=== PATIENT | female | born 1945 | race Caucasian/White ===

== ENCOUNTER 2025-06-07 07:58 | Emergency (ER) | payer MEDICARE, SELFPAY ==
[2025-06-07 08:04] VITALS: BP 162/91
--- NOTE | 2025-06-07 08:31 | ED.GENMED ---
History of Present Illness
General
Chief Complaint: Change in Mental Status
Source: patient, records and [facility] records
Exam Limitations: altered mental status and dementia
Time Seen by Provider: 06/07/25 08:03
Nursing documentation reviewed up to this point in time: agreed with
History of Present Illness
History of Present Illness:
80-year-old female from local [facility] facility presents for evaluation of falls, details are unclear she denies hitting her head she knows she is at [facility] but not sure of the year moving all extremities no overt signs of head or neck trauma no
pain with range of motion of her hips staff concerns could have a UTI does not appear to be on any blood thinners
Past History
Past History
ED Past Medical History: Psychiatric
Social History
Tobacco: Non-smoker
Alcohol: None
Drug: None
Living: [facility]
Employment: Not employed
Family History
Family History: Unable to obtain (Dementia)
Review of Systems
Review of Systems
Unable to obtain full review of systems at this time due to: dementia
Other source history: transfer record
All Other Systems: Not applicable
Phy Exam
Physical Exam
Physical Exam:
Physical Exam
General: no apparent distress, not acutely ill
Neck: No tongue bite no overt signs of head or neck trauma
Heart: s1/s2 regular rate and rhythm, no murmur. equal radial pulses.
Lungs: no acute respiratory distress. clear bilaterally
Abdomen: Nontender
Neuro: Oriented to person and place unsure of the year moves all EXTR
Skin: no rash
Psychiatric: Cooperative flat affect
Extremities: No pain with range of motion of the hip
Course
Orders/Labs/Results
Orders:
Orders
06/07/25 08:03
EKG [Electrocardiogram (*1)] Urgent
Reason for Study: Chest Pain
EKG- Treatment ONCE
06/07/25 08:21
Straight cath- Treatment ONCE
06/07/25 08:22
CT Head W/o Iv Contrast Urgent
Comment:
Reason For Exam: multi falls
06/07/25 08:36
Complete Blood Count/With Diff Urgent
Comprehensive Metabolic Panel Urgent
06/07/25 09:28
Straight cath- Treatment ONCE
06/07/25 10:08
Urinalysis Reflex To Culture Urgent
Date Specimen was Collected: 06/07/25
Time Specimen was Collected: 09:38
Abnormal Lab Results
06/07/25
08:36
MPV 11.4 H fL
(7.4-10.4)
Absolute Lymphs (auto) 0.9 L 10^3/uL
(1.2-3.4)
Lymphocytes % 16.7 L %
(20.5-51.1)
Monocytes % 12.1 H %
(1.7-9.3)
Chloride 108 H mmol/L
(98-107)
06/07/25 08:36
06/07/25 08:36
Vital Signs
Initial and Last Documented VS:
Initial Vital Signs
Temp Pulse Resp BP Pulse Ox
98.0 F 73 16 162/91 98
06/07/25 08:04 06/07/25 08:04 06/07/25 08:04 06/07/25 08:04 06/07/25 08:04
Last Documented Vital Signs
Temp Pulse Resp BP Pulse Ox
98.0 F 73 16 162/91 98
06/07/25 08:04 06/07/25 08:04 06/07/25 08:04 06/07/25 08:04 06/07/25 08:33
MDM/Problems Addressed
Differential Diagnosis Includes:
Slip and fall arrhythmia electrolyte abnormality UTI occult trauma
MDM/Problems Addressed:
Falls
Chronic conditions affecting care:
Dementia neurocognitive issues
Chronic conditions affecting care: Neurological disorder
Acute Exacerbation and/or Progression of Chronic Illness: Neurological disorder
*Radiology
Radiology exam reviewed: radiology read reviewed
*Pulse Oximetry
SaO2: 98
Oxygen Mode of Delivery: Room air
Patient hypoxic: no
*EKG
Interpreted by ED Provider?: Yes
Interpretation: normal
Comparison EKG: no comparison EKG present
Heart Rate: 78
Rate: normal
Rhythm: sinus
Ischemia: non-specific ST changes
*Horse Stud Worker Interpretation
Rate: normal
Interpretation: normal
Heart Rate: 78
Rhythm: sinus
*Critical Care Note
Total Time (30-74mins, 75-104mins- exclusive of procedures): Not Applicable
Update Note
Update Note:
10:30 AM
Update labs noted CT noted EKG noted urine noted patient remained hemodynamically stable here
ED Attending Note
-
Portions of this chart may have been created with voice recognition software.� Occasional wrong word or��sound alike� substitutions may have occurred due to the inherent limitations of voice recognition software.
Discharge Plan
Departure
Patient Disposition: Group Home/SNF
Date of Disposition: 06/07/25
Time of Disposition: 10:30
Patient with high blood pressure during this ER visit?: No
Condition: Good
Discharge Problem:
Fall
Instructions: Preventing falls - ED discharge instructions, Dementia (DC)
Prescriptions:
No Action
atenolol 25 mg Tablet
25 mg PO BID
omeprazole 20 mg Capsule,Delayed Release(Dr/Ec)
20 mg PO DAILY
albuterol sulfate [ProAir HFA] 90 mcg/actuation Hfa Aerosol Inhaler
2 puff INHALATION R Q6HPRN PRN (Reason: SOB)
fluticasone propionate [Flonase] 50 mcg/actuation [place],Suspension
1 spray INTRANASAL BIDPRN PRN (Reason: ALLERGIES)
fludrocortisone 0.1 mg Tablet
0.1 mg PO DAILY
rosuvastatin [Crestor] 10 mg Tablet
10 mg PO DAILY
bupropion HCl 150 mg Tablet Extended Release 24 Hr
150 mg PO DAILY
Referrals:
Ilan Luong CRNP [Family Provider, General] - Follow up in 5-7 days
Discharge Date and Time
Print Language: GEORGIAN
[2025-06-07 08:48] LABS: Hematocrit 40.4 % (37.0-47.0); Hemoglobin 13.4 g/dL (12.0-16.0); Mean Corp Hgb Conc. 33.2 g/dL (33.0-37.0); Mean Corpuscular Volume 88.6 fL (81.0-99.0); Nucleated Red Blood Cells % 0 %; Platelet Count 257 10^3/uL (130-400); Red Cell Dist. Width 13.2 % (11.5-14.5)
[2025-06-07 09:01] LABS: ALT (SGPT) < 10 U/L (0-35); AST (SGOT) 18 U/L (14-36); Albumin 4.0 g/dl (3.5-5.0); Alkaline Phosphatase 53 U/L (38-126); Blood Urea Nitrogen 10 mg/dl (7-17); Calcium 8.6 mg/dl (8.4-10.2); Carbon Dioxide 26 mmol/L (22-30); Chloride 108 mmol/L (98-107); Estimated Creatinine Clearance 56 ml/min; Glucose 93 mg/dl (70-99); Potassium 3.9 mmol/L (3.5-5.1); Sodium 141 mmol/L (135-145); Total Protein 7.1 g/dl (6.3-8.2); eGFR > 60.00
[2025-06-07 10:16] LABS: Urine Character Clear (Clear)
== END 2025-06-07 12:30 ==
LOC: EMR 07:58
PROVIDERS: Emergency Medicine; EMERGENCY PHYSICIAN Emergency Medicine; FAMILY PHYSICIAN Nurse Practitioner Family
DX: Z04.3 Encounter for examination and observation following other accident (principal); R29.6 Repeated falls; F03.90 Unspecified dementia, unspecified severity, without behavioral disturbance, psychotic disturbance, mood disturbance, and anxiety; W19.XXXA Unspecified fall, initial encounter
CPT/HCPCS: 99285; 70450; 80053; 81003; 85025; 93005

== ENCOUNTER 2025-06-10 12:53 | Emergency (ER) | payer MEDICARE, SELFPAY ==
[2025-06-10] VITALS (22 sets, daily range): BP systolic 94–183; BP diastolic 57–147
[2025-06-10 14:18] LABS: Hematocrit 43.2 % (37.0-47.0); Hemoglobin 13.8 g/dL (12.0-16.0); Mean Corp Hgb Conc. 31.9 g/dL (33.0-37.0); Mean Corpuscular Volume 90.6 fL (81.0-99.0); Platelet Count 280 10^3/uL (130-400); Red Cell Dist. Width 13.3 % (11.5-14.5)
[2025-06-10 14:34] LABS: ALT (SGPT) < 10 U/L (0-35); AST (SGOT) 18 U/L (14-36); Albumin 4.2 g/dl (3.5-5.0); Alkaline Phosphatase 50 U/L (38-126); Blood Urea Nitrogen 15 mg/dl (7-17); Calcium 9.2 mg/dl (8.4-10.2); Carbon Dioxide 28 mmol/L (22-30); Chloride 105 mmol/L (98-107); Estimated Creatinine Clearance 48 ml/min; Glucose 99 mg/dl (70-99); Potassium 4.4 mmol/L (3.5-5.1); Sodium 138 mmol/L (135-145); Total Protein 7.5 g/dl (6.3-8.2); eGFR > 60.00
[2025-06-10] MEDS: MORPHINE SULFATE 2 MG IV ×2 (14:48→17:10)
--- NOTE | 2025-06-10 16:36 | ED.GENMED ---
History of Present Illness
<Robles Mcgee PA-C - Last Filed: 06/10/25 19:11>
General
Chief Complaint: Fall
Time Seen by Provider: 06/10/25 13:21
History of Present Illness
History of Present Illness:
80-year-old female with history of hypertension hyperlipidemia as well as cognitive impairment presents to the emergency department after a fall. Fall was not witnessed by staff but the patient informs me that she tripped and fell onto her left
side and did not strike her head. She is complaining of left-sided chest wall pain. She is not on anticoagulants. Denies any head or neck pain at this time
Past History
<Robles Mcgee PA-C - Last Filed: 06/10/25 19:11>
Past History
ED Past Medical History: Psychiatric
Social History
Tobacco: Non-smoker
Alcohol: None
Drug: None
Living: long term
Employment: Not employed
Family History
Family History: Unable to obtain (Dementia)
Review of Systems
<Robles Mcgee PA-C - Last Filed: 06/10/25 19:11>
Review of Systems
Allergies reviewed?: Yes
All Other Systems: ROS reviewed and negative except as documented in HPI and ROS
Phy Exam
<Robles Mcgee PA-C - Last Filed: 06/10/25 19:11>
Physical Exam
Physical Exam:
GEN: Well appearing, NAD, WDWN
Eyes: PERRLA, EOMs intact, no scleral icterus
HENT: NCAT, oral mucosa moist, no midline cervical spine tenderness
Lungs: CTAB, no wheezes, rales, rhonchi, normal chest wall excursion
Chest: Ecchymosis to the left posterior chest wall with no deformities or flail segment
Cardiac: RRR, no M/R/G, no peripheral edema. Radial pulses 2+ bilat
Abdomen: S, NT, ND, NABS, no masses or hepatosplenomegaly
Neuro: AO x 3, moves all extremities freely
MSK: No gross deformity or ecchymosis. Pelvis stable with no crepitus, no midline cervical, thoracic, or lumbar spinal tenderness. Right hand pain reported by patient, exam unremarkable with no ecchymosis or deformity
Skin: No rashes, petechiae. Normal color, no pallor or jaundice.
Psych: Calm, cooperative, proper hygiene
Course
<Robles Mcgee PA-C - Last Filed: 06/10/25 19:11>
Orders/Labs/Results
Orders:
Orders
06/10/25 13:30
CT Chest/abd/pel W Iv Cont Urgent
Comment:
Reason For Exam: fall, trauma, LUQ/chest wall pain
06/10/25 13:56
Complete Blood Count/No Diff Urgent
Comprehensive Metabolic Panel Urgent
06/10/25 14:33
Morphine Sulfate 2 mg IV NOW STA
06/10/25 17:09
Morphine Sulfate 2 mg .ROUTE .STK-MED ONE
Morphine Sulfate 2 mg IV NOW STA
06/10/25 17:20
CT Cervical Spine W/o Iv Contr Urgent
Comment:
Reason For Exam: trauma
CT Head W/o Iv Contrast Urgent
Comment:
Reason For Exam: trauma
06/10/25 17:42
Ondansetron Injectable [Zofran] 4 mg .ROUTE .STK-MED ONE
06/10/25 17:45
Ondansetron Injectable [Zofran] 4 mg IV NOW STA
06/10/25 17:46
Chest X-ray Portable [CR Chest Portable - 1 View] Urgent
Comment:
Reason For Exam: chest tube
Reason Study Needs to be Portable: Patient Unstable
Abnormal Lab Results
06/10/25
13:56
MCHC 31.9 L g/dL
(33.0-37.0)
MPV 10.7 H fL
(7.4-10.4)
06/10/25 13:56
06/10/25 13:56
Vital Signs
Initial and Last Documented VS:
Initial Vital Signs
Temp Pulse Resp BP Pulse Ox
97.6 F 72 20 128/57 100
06/10/25 13:00 06/10/25 13:00 06/10/25 13:00 06/10/25 13:00 06/10/25 13:00
Last Documented Vital Signs
Temp Pulse Resp BP Pulse Ox
98.1 F 69 16 152/72 99
06/10/25 16:43 06/10/25 19:00 06/10/25 19:00 06/10/25 19:00 06/10/25 19:00
<Susanna Jaime, - Last Filed: 06/10/25 18:02>
Orders/Labs/Results
Orders:
Orders
06/10/25 13:30
CT Chest/abd/pel W Iv Cont Urgent
Comment:
Reason For Exam: fall, trauma, LUQ/chest wall pain
06/10/25 13:56
Complete Blood Count/No Diff Urgent
Comprehensive Metabolic Panel Urgent
06/10/25 14:33
Morphine Sulfate 2 mg IV NOW STA
06/10/25 17:09
Morphine Sulfate 2 mg .ROUTE .STK-MED ONE
Morphine Sulfate 2 mg IV NOW STA
06/10/25 17:20
CT Cervical Spine W/o Iv Contr Urgent
Comment:
Reason For Exam: trauma
CT Head W/o Iv Contrast Urgent
Comment:
Reason For Exam: trauma
06/10/25 17:42
Ondansetron Injectable [Zofran] 4 mg .ROUTE .STK-MED ONE
06/10/25 17:45
Ondansetron Injectable [Zofran] 4 mg IV NOW STA
06/10/25 17:46
Chest X-ray Portable [CR Chest Portable - 1 View] Urgent
Comment:
Reason For Exam: chest tube
Reason Study Needs to be Portable: Patient Unstable
Abnormal Lab Results
06/10/25
13:56
MCHC 31.9 L g/dL
(33.0-37.0)
MPV 10.7 H fL
(7.4-10.4)
06/10/25 13:56
06/10/25 13:56
Vital Signs
Initial and Last Documented VS:
Initial Vital Signs
Temp Pulse Resp BP Pulse Ox
97.6 F 72 20 128/57 100
06/10/25 13:00 06/10/25 13:00 06/10/25 13:00 06/10/25 13:00 06/10/25 13:00
Last Documented Vital Signs
Temp Pulse Resp BP Pulse Ox
98.1 F 69 16 152/72 99
06/10/25 16:43 06/10/25 19:00 06/10/25 19:00 06/10/25 19:00 06/10/25 19:00
Procedures
<Susanna Jaime DO - Last Filed: 06/10/25 18:02>
Chest Tube
Indication for procedure:: pneumothorax
Procedure completed by: Susanna Jaime DO
Consent form signed: Yes
Anesthesia: 1% Lidocaine
Chest tube placed to: left side
Size of chest tube (cm): 14
Preparation: cleaned with Betadine
Chest tube position: mid axillary line
Chest tube sutured to skin?: Yes
Chest tube complications: none
<Robles Mcgee PA-C - Last Filed: 06/10/25 19:11>
MDM/Problems Addressed
MDM/Problems Addressed:
Patient with an unwitnessed fall found to have a traumatic pneumothorax although interestingly no evidence for demonstrable rib fracture. Remainder of trauma scans unremarkable. Will be transferred to [facility] as a trauma
transfer, unfortunately due to transport delay the patient will not be picked up until 2029 tonight. Remained clinically stable in the emergency department. I did update her daughter by phone
<Robles Mcgee PA-C - Last Filed: 06/10/25 19:11>
*Pulse Oximetry
SaO2: 100
Oxygen Mode of Delivery: Room air
Patient hypoxic: no
<Susanna Jaime DO - Last Filed: 06/10/25 18:02>
*Critical Care Note
Total Time (30-74mins, 75-104mins- exclusive of procedures): 45
comment:
The high probability of a clinically significant, sudden or life threatening deterioration of the cardiopulmonary system(s) required my full and direct attention, intervention and personal management. The aggregate critical care time was 45 minutes.
This time is in addition to time spent performing reported procedures but includes the following:
[x] Data Review and interpretation
[x] Patient assessment and monitoring of vital signs
[x] Documentation
[x] Medication orders and management
<Robles Mcgee PA-C - Last Filed: 06/10/25 19:11>
Update Note
Update Note:
1809: Informed by community fundraiser that transport time will not be until 2030 this evening, at this time the patient remained stable thus there is no indication for emergent flight
ED Attending Note
<Robles Mcgee PA-C - Last Filed: 06/10/25 19:11>
-
Portions of this chart may have been created with voice recognition software.� Occasional wrong word or��sound alike� substitutions may have occurred due to the inherent limitations of voice recognition software.
<Susanna Jaime DO - Last Filed: 06/10/25 18:02>
ED Attending Note
Patient seen and examined by attending physician: Yes
I performed the substantive portion of visit, reviewed & personally made and approve the management plan that is documented in note by myself or SHER.: Yes
I performed a history and physical exam of patient and discussed management with resident, I reviewed resident's note and agree with documented findings and plan of care.: Yes
ED Attending Note:
80-year-old female presenting to the emergency department after fall. Patient fell onto her left side prior to arrival. Patient initially seen and evaluated by physician assistant gm of content & delivery. No report of any head trauma. On examination, noted pain and
bruising to the left mid axillary region and left thoracic musculature with diffuse tenderness on palpation. For this reason CT of the chest had been obtained which is concerning for acute pneumothorax. No significant signs of rib fractures.
Hemodynamically stable in the emergency department. Placed on nasal cannula for oxygen support given size of pneumothorax, patient consented for procedure and chest tube was placed. No issues with pigtail catheter placement. Please procedure
note. Plan for transfer to trauma center.
Discharge Plan
Departure
Patient Disposition: Acute Care Hospital
Date of Disposition: 06/10/25
Time of Disposition: 16:37
Discharge Problem:
Pneumothorax
Prescriptions:
No Action
atenolol 25 mg Tablet
25 mg PO BID
omeprazole 20 mg Capsule,Delayed Release(Dr/Ec)
20 mg PO DAILY
albuterol sulfate [ProAir HFA] 90 mcg/actuation Hfa Aerosol Inhaler
2 puff INHALATION R Q6HPRN PRN (Reason: SOB)
fluticasone propionate [Flonase] 50 mcg/actuation [place],Suspension
1 spray INTRANASAL BIDPRN PRN (Reason: ALLERGIES)
fludrocortisone 0.1 mg Tablet
0.1 mg PO DAILY
rosuvastatin [Crestor] 10 mg Tablet
10 mg PO DAILY
bupropion HCl 150 mg Tablet Extended Release 24 Hr
150 mg PO DAILY
Referrals:
UNKNOWN - PT NOT,INTERVIEWE [Family Provider]
Hospital Transfer
Other hospital: [facility]
I certify that the patient requires transfer: Yes
Discussed case with accepting physician: Carlton-Atilio
Reason for transfer: higher level of care
Interventions
Interventions:
*Risk Screen - Suicide Last Done: 06/10/25 14:10
*General Assessment Last Done: 06/10/25 14:10
*Neglect/Abuse Screening Last Done: 06/10/25 14:10
*ED- Fall Risk Assessment Last Done: 06/10/25 14:10
*ED COVID-19 Vaccine History Last Done: 06/10/25 14:10
ED-Musculoskeletal Assessment Last Done: 06/10/25 14:10
ED- Neurological Assessment Last Done: 06/10/25 14:10
ED-Skin Assessment Last Done: 06/10/25 14:10
Discharge Date and Time
Print Language: HEBREW
[2025-06-10] MEDS: ZOFRAN 4 MG IV (17:45)
[2025-06-10] MEDS: DILAUDID 0.5 MG IV (19:50)
== END 2025-06-10 21:22 | disposition short-term general hospital (02) ==
LOC: EMR 12:53
PROVIDERS: Physician Assistant; EMERGENCY PHYSICIAN Student in an Organized Health Care Education/Training Program
DX: S27.0XXA Traumatic pneumothorax, initial encounter (principal); W01.0XXA Fall on same level from slipping, tripping and stumbling without subsequent striking against object, initial encounter; I10 Essential (primary) hypertension; E78.5 Hyperlipidemia, unspecified
CPT/HCPCS: 96374; 96375; 96376; 32556; 99291; 70450; 71045; 71260; 72125; 74177; 80053; 85027; Q9967

== ENCOUNTER 2025-07-09 15:40 | Inpatient (IN) | payer MEDICARE, SELFPAY ==
[2025-07-09] VITALS (22 sets, daily range): BP systolic 70–147; BP diastolic 40–76
[2025-07-09 10:34] LABS: Glucose - Point of Care 112 mg/dl (70-99)
--- NOTE | 2025-07-09 11:11 | ED.GENMED ---
History of Present Illness
<TRINITY Berry - Last Filed: 07/09/25 15:03>
General
Chief Complaint: Change in Mental Status
Source: ambulance crew
Exam Limitations: dementia
Time Seen by Provider: 07/09/25 10:29
Nursing documentation reviewed up to this point in time: agreed with
History of Present Illness
History of Present Illness:
Patient is an 80-year-old female from [facility] sent for evaluation. Patient with history of hypertension hyperlipidemia recently traumatic pneumothorax in May 2025 after fall .
As per EMS patient was found in the dining room slumped over. EMS was called. Patient presents with eyes closed does attempt to open her eyes upon command and will state her name however otherwise sleeping.
Nurse from [place] reports pt was awake in the morning then wheelchair to the dining room by staff, then RN reports she fell asleep then staff notificed her speech was a little off around 8:30 am.
Past History
<TRINITY Berry - Last Filed: 07/09/25 15:03>
Past History
ED Past Medical History: Psychiatric
Social History
Tobacco: Non-smoker
Alcohol: None
Drug: None
Living: [facility]
Employment: Not employed
Family History
Family History: Unable to obtain (Dementia)
Phy Exam
<TRINITY Berry - Last Filed: 07/09/25 15:03>
General Physical Exam
General Presentation: no apparent distress
General age: appears stated age
General Skin: warm and dry
General Habitus: elderly
General Mental: alert
General Hydration: appears well hydrated
Cardiovascular Exam
Cardiovascular Exam: regular rate/rhythm, no murmur and normal peripheral pulses
Pulmonary Exam
Pulmonary Exam: lungs clear and no respiratory distress
Neurological Exam
Neurological Exam: other (Patient with eyes closed sleeping will mumble her name and attempt answer questions when asked but attempts to follow commands)
Musculoskeletal Exam
Musculoskeletal Exam: full ROM
Skin Exam
Skin Exam: normal color and warm/dry
Course
<TRINITY Berry - Last Filed: 07/09/25 15:03>
Orders/Labs/Results
Orders:
Orders
07/09/25 10:44
Electrocardiogram (*1) Urgent
Reason for Study: Syncope
EKG- Treatment ONCE
07/09/25 11:06
CMP [Comprehensive Metabolic Panel] Urgent
Cardiovascular Evaluation Urgent
Complete Blood Count/With Diff Urgent
Free T4 Urgent
Comment: ADD ON
TSH Urgent
Comment: ADD ON
Vitamin B12 Urgent
Comment: ADD ON
07/09/25 11:23
UA Reflex to Culture [Urinalysis Reflex To Culture] Urgent
Date Specimen was Collected: 07/09/25
Time Specimen was Collected: 11:21
Urine Microscopic Reflex Cult Urgent
07/09/25 11:39
CT Head W/o Iv Contrast Urgent
Comment:
Reason For Exam: change in ms
07/09/25 12:05
COVID-19 Antigen Urgent
Source: Nasal Swab
Influenza A+B Rapid Molecular Urgent
GAY Source: Nasal Swab
Specimen Description:
07/09/25 12:08
0.9% Sodium Chloride 500 ml [Nss] 1,000 ml IV BOLUS
07/09/25 12:28
0.9% Sodium Chloride 500 ml [Nss] 500 ml IV BOLUS
07/09/25 13:34
CT Brain Perfusion Urgent
Comment:
Reason For Exam: slurred speech
CT Head & Neck Angio W/wo IV Urgent
Comment:
Reason For Exam: slurred speech
07/09/25 13:56
EEG Routine Routine
Reason for Exam: ? CPS
Neurology Consult:: DR. COLLINS
07/09/25 14:15
Portable Chest Xray [CR Chest Portable - 1 View] Urgent
Comment:
Reason For Exam: change in ms
Reason Study Needs to be Portable: Unable to Transport
07/09/25 14:16
Add On- LAB Routine
Tests Added?: lipid panel, TSH, free t4, B12
Abnormal Lab Results
07/09/25 07/09/25 07/09/25
10:33 11:06 11:23
RBC 4.06 L 10^6/uL
(4.20-5.40)
Hgb 11.9 L g/dL
(12.0-16.0)
MCHC 32.2 L g/dL
(33.0-37.0)
RDW 15.1 H %
(11.5-14.5)
Absolute Lymphs (auto) 1.0 L 10^3/uL
(1.2-3.4)
Absolute Monos (auto) 0.8 H 10^3/uL
(0.1-0.6)
Lymphocytes % 12.7 L %
(20.5-51.1)
Monocytes % 10.0 H %
(1.7-9.3)
BUN 19 H mg/dl
(7-17)
Glucose 117 H mg/dl
(70-99)
Urine Albumin (Reflex) 1+ A
(Neg - Trace)
POC Glucose 112 H mg/dl
(70-99)
07/09/25 11:06
07/09/25 11:06
Vital Signs
Initial and Last Documented VS:
Initial Vital Signs
BP
112/48
07/09/25 10:31
Last Documented Vital Signs
Temp Pulse Resp BP Pulse Ox
97.5 F 78 11 95/49 99
09/16/25 10:37 07/09/25 12:30 07/09/25 12:30 07/09/25 12:30 07/09/25 12:30
[employer] Headgate Operator consulted with Physician
[employer] Headgate Operator consulted with physician?: Yes
Name of Physician Consulted: Yeni
<Susanna Jaime, DO - Last Filed: 07/09/25 14:50>
Orders/Labs/Results
Orders:
Orders
07/09/25 10:44
Electrocardiogram (*1) Urgent
Reason for Study: Syncope
EKG- Treatment ONCE
07/09/25 11:06
CMP [Comprehensive Metabolic Panel] Urgent
Cardiovascular Evaluation Urgent
Complete Blood Count/With Diff Urgent
Free T4 Urgent
Comment: ADD ON
TSH Urgent
Comment: ADD ON
Vitamin B12 Urgent
Comment: ADD ON
07/09/25 11:23
UA Reflex to Culture [Urinalysis Reflex To Culture] Urgent
Date Specimen was Collected: 07/09/25
Time Specimen was Collected: 11:21
Urine Microscopic Reflex Cult Urgent
07/09/25 11:39
CT Head W/o Iv Contrast Urgent
Comment:
Reason For Exam: change in ms
07/09/25 12:05
COVID-19 Antigen Urgent
Source: Nasal Swab
Influenza A+B Rapid Molecular Urgent
AGY Source: Nasal Swab
Specimen Description:
07/09/25 12:08
0.9% Sodium Chloride 500 ml [Nss] 1,000 ml IV BOLUS
07/09/25 12:28
0.9% Sodium Chloride 500 ml [Nss] 500 ml IV BOLUS
07/09/25 13:34
CT Brain Perfusion Urgent
Comment:
Reason For Exam: slurred speech
CT Head & Neck Angio W/wo IV Urgent
Comment:
Reason For Exam: slurred speech
07/09/25 13:56
EEG Routine Routine
Reason for Exam: ? CPS
Neurology Consult:: DR. COLLINS
07/09/25 14:15
Portable Chest Xray [CR Chest Portable - 1 View] Urgent
Comment:
Reason For Exam: change in ms
Reason Study Needs to be Portable: Unable to Transport
07/09/25 14:16
Add On- LAB Routine
Tests Added?: lipid panel, TSH, free t4, B12
Abnormal Lab Results
07/09/25 07/09/25 07/09/25
10:33 11:06 11:23
RBC 4.06 L 10^6/uL
(4.20-5.40)
Hgb 11.9 L g/dL
(12.0-16.0)
MCHC 32.2 L g/dL
(33.0-37.0)
RDW 15.1 H %
(11.5-14.5)
Absolute Lymphs (auto) 1.0 L 10^3/uL
(1.2-3.4)
Absolute Monos (auto) 0.8 H 10^3/uL
(0.1-0.6)
Lymphocytes % 12.7 L %
(20.5-51.1)
Monocytes % 10.0 H %
(1.7-9.3)
BUN 19 H mg/dl
(7-17)
Glucose 117 H mg/dl
(70-99)
Urine Albumin (Reflex) 1+ A
(Neg - Trace)
POC Glucose 112 H mg/dl
(70-99)
07/09/25 11:06
07/09/25 11:06
Vital Signs
Initial and Last Documented VS:
Initial Vital Signs
BP
112/48
07/09/25 10:31
Last Documented Vital Signs
Temp Pulse Resp BP Pulse Ox
97.5 F 78 11 95/49 99
07/09/25 10:37 07/09/25 12:30 07/09/25 12:30 07/09/25 12:30 07/09/25 12:30
<TRINITY Berry - Last Filed: 07/09/25 15:03>
MDM/Problems Addressed
Differential Diagnosis Includes:
Not limited to infection, seizure, stroke
MDM/Problems Addressed:
Patient is an 80-year-old female presents to the ER for evaluation. Patient was sent by [facility] found slumped in her chair in the dining room. Patient presents here very sleepy tired will attempt to tell us her name. She is afebrile with a
normal white count labs are unremarkable including negative urine negative chest x-ray negative CT head neg. patient's blood pressure did decrease to the 70s she was given fluids and bp low 100s.
Daughter at bedside reports that she feels that when patient is awake her speech is very slurred and this is completely not her baseline if she has memory issues she is normally awake alert clear speech.
Initial EMS report different than history from nursing facility. I did speak with nurse who reports the patient was in the dining room and ate 30 in the morning with her head down and not responding to any verbal stimuli and then she had a
questionable seizure episode lasting 2 to 3 minutes then was incontinent bowel or bladder. When she did come to her speech was slightly off still.
Case discussed with ED physician will order CTA and brain perfusion discussed with neurology seizure is a consideration especially with patient possibly postictal at this time very sleepy.
1420: Patient was evaluated by neurology no focal deficit. Brain perfusion CTA head and neck pending will need admission CTA head and neck shows moderate atherosclerosis of the carotid arterial system bilaterally with likely nonhemodynamically
significant stenosis of the proximal internal carotid arteries no dissection and negative
Pt adm to hosp service
Chronic conditions affecting care:
Cognitive impairment hypertension hyperlipidemia
<TRINITY Berry - Last Filed: 07/09/25 15:03>
*Radiology
Radiology exam reviewed: radiology read reviewed
*Pulse Oximetry
SaO2: 94
Oxygen Mode of Delivery: Room air
Patient hypoxic: no
*EKG
Interpreted by ED Provider?: Yes
Heart Rate: 71
Rate: normal
Rhythm: sinus and PVC's
Ischemia: no ischemia
*Critical Care Note
Total Time (30-74mins, 75-104mins- exclusive of procedures): Not Applicable
<TRINITY Berry - Last Filed: 07/09/25 15:03>
Patient Management
Discussion with other providers: Electronic Scale Tester (neuro DR Collins )
ED Attending Note
<TRINITY Berry - Last Filed: 07/09/25 15:03>
-
Portions of this chart may have been created with voice recognition software.� Occasional wrong word or��sound alike� substitutions may have occurred due to the inherent limitations of voice recognition software.
<Susanna Jaime DO - Last Filed: 07/09/25 14:50>
ED Attending Note
Patient seen and examined by attending physician: Yes
I performed the substantive portion of visit, reviewed & personally made and approve the management plan that is documented in note by myself or SHER.: Yes
I performed a history and physical exam of patient and discussed management with resident, I reviewed resident's note and agree with documented findings and plan of care.: Yes
ED Attending Note:
80-year-old female with history of hyperlipidemia and hypertension presenting to the emergency department for altered mental status. Patient arrives by medics with report that patient is not at her baseline from nursing facility. Patient very
limited historian on arrival. Patient is awake and arousable, however somnolent, continues to fall asleep. Vital signs on arrival are normal.
Patient additionally seen and evaluated by nurse practitioner. However, nurse practitioner then called nursing facility and patient's story somewhat changed. They note at 830, patient fell asleep while eating breakfast and was difficult to arouse.
There was additionally a shaking episode, no prior history of seizures. Patient was incontinent with stool on arrival. Daughter also arrived to bedside and reports that patient is significantly off of her baseline is usually conversational, is
having difficulty speaking. For this reason stroke versus seizure is a consideration. Currently out of the window for TNK. Patient initially did have a CT of her brain obtained, negative for acute process. On my examination, patient's somnolent
but arousable. Slurring of speech. Global weakness to upper and lower extremities with no lateralizing symptoms. More suspicious for postictal state. Plan for CT angio/CT perfusion, and discussion with neurology regarding possible EEG. Patient
otherwise afebrile, nontoxic with lower suspicion for infectious pathology.
14:45 -additional CT imaging is negative. Neurology did come to bedside. In discussion with neurology, currently getting EEG. Plan for admission for altered mental status and continue neurologic workup
Discharge Plan
Departure
Patient Disposition: Admit
Date of Disposition: 07/09/25
Time of Disposition: 15:00
Admit to: Telemetry
Admit to doctor: hospitalist
Presentation/result/management discussed w/ accepting MD/DO: Hospitalist
Patient with high blood pressure during this ER visit?: No
Covid-19: Not Applicable
Discharge Problem:
Altered mental status
Prescriptions:
No Action
atenolol 25 mg Tablet
25 mg PO BID
albuterol sulfate [ProAir HFA] 90 mcg/actuation Hfa Aerosol Inhaler
2 puff INHALATION R Q6HPRN PRN (Reason: SOB)
fludrocortisone 0.1 mg Tablet
0.1 mg PO DAILY
rosuvastatin [Crestor] 10 mg Tablet
10 mg PO DAILY
bupropion HCl 150 mg Tablet Extended Release 24 Hr
150 mg PO DAILY
cholecalciferol (vitamin D3) 50 mcg (2,000 unit) Capsule
50 mcg PO DAILY
Referrals:
Ilan Luong CRNP [Family Provider, General]
Interventions
Interventions:
*Risk Screen - Suicide Last Done: 07/09/25 10:48
*General Assessment Last Done: 07/09/25 10:48
*Neglect/Abuse Screening Last Done: 07/09/25 10:48
*ED- Fall Risk Assessment Last Done: 07/09/25 10:48
*ED COVID-19 Vaccine History Last Done: 07/09/25 10:48
ED- Pulmonary Assessment Last Done: 07/09/25 10:45
ED- Neurological Assessment Last Done: 07/09/25 14:12
ED- Cardiac Assessment Last Done: 07/09/25 10:45
ED Swallowing Screen Last Done: 07/09/25 12:34
Discharge Date and Time
Print Language: BRAZILIAN
[2025-07-09 11:12] LABS: Hematocrit 37.0 % (37.0-47.0); Hemoglobin 11.9 g/dL (12.0-16.0); Mean Corp Hgb Conc. 32.2 g/dL (33.0-37.0); Mean Corpuscular Volume 91.1 fL (81.0-99.0); Nucleated Red Blood Cells % 0 %; Platelet Count 235 10^3/uL (130-400); Red Cell Dist. Width 15.1 % (11.5-14.5)
[2025-07-09 11:28] LABS: ALT (SGPT) 14 U/L (0-35); AST (SGOT) 19 U/L (14-36); Albumin 3.9 g/dl (3.5-5.0); Alkaline Phosphatase 77 U/L (38-126); Blood Urea Nitrogen 19 mg/dl (7-17); Calcium 9.0 mg/dl (8.4-10.2); Carbon Dioxide 30 mmol/L (22-30); Chloride 106 mmol/L (98-107); Glucose 117 mg/dl (70-99); Potassium 3.9 mmol/L (3.5-5.1); Sodium 140 mmol/L (135-145); Total Protein 6.8 g/dl (6.3-8.2); eGFR 56.95
[2025-07-09 11:33] LABS: Urine Character Clear (Clear)
[2025-07-09 12:04] LABS: Urine Red Blood Cell None Seen /HPF (0-2); Urine Squamous Cell 0-2 /LPF (Few); Urine White Cell 0-2 /HPF (0-5)
[2025-07-09] MEDS: NSS 1000 IV ×2 (12:09→19:27)
[2025-07-09 12:29] LABS: COVID-19 Antigen Negative (Negative)
--- NOTE | 2025-07-09 13:56 | CON.NEURO ---
Addendum entered and electronically signed by Lele Campbell MD 07/09/25 14:50:
Studies reviewed.
I have personally examined the patient. I reviewed and agree with the HELP DESK SUPPORT's Note.
My addenda:
Awake, maintains eyes closed, minimally interactive. No acute distress.
Speech reduced output, clear.
Follows 1-step requests w/ significant difficulty. No tremor.
Extra-ocular movements grossly intact.
Facial movements full and symmetric. Hearing intact to normal conversational volume.
Normal UE movements bilaterally.
Neck: full ROM.
Chest: no dyspnea
Heart: no JVD
Ext: (-) Clubbing, (-) Cyanosis, (-) Edema
IMPRESSIONS/RECOMMENDATIONS:
Abrupt onset of change in mental status in a patient with a prior history of hypotension and dementia
Current change in mental status most likely secondary to combination of relative hypotension which might be due to toxic metabolic factors, and underlying dementia
Check EEG
Check CTA head and neck
Check MRI of brain
Check blood work for metabolic abnormalities
Consider lumbar puncture if EEG demonstrates focal abnormality
Provide thiamine
D/W patient / family / nursing
All questions answered.
Will continue to follow patient.
Original Note:
Neuro Assessment/Plan
Assessment
Patient is an 80-year-old female with past medical history significant for hypertension, hyperlipidemia, orthostatic hypotension on fludrocortisone, cognitive impairment sent from [facility] on 07/[facility]/2025 for evaluation of change in mental status.
CTA head/neck: Moderate atherosclerosis of the carotid arterial system bilaterally with likely nonhemodynamically significant stenosis of the proximal internal carotid arteries bilaterally, as noted above. Dominant left vertebral artery. No findings
to suggest internal carotid artery or vertebral artery dissection bilaterally. No significant proximal intracranial arterial stenosis bilaterally.
Head CT: No acute intracranial abnormalities. Findings again seen compatible with diffuse cortical atrophy with nonspecific white matter changes.
Impression: abrupt change in mental status possibly in a patient with dementia and orthostatic hypotension due to toxic metabolic encephalopathy vs seizure vs stroke
Plan
-obtain brain MRI to evaluate for structural abnormalities
-obtain CTA head and neck
-obtain EEG to rule out seizure activity
-check blood work for metabolic abnormalities and infection
-check hgb A1C with goal normoglycemia
-check LDL with goal <70
-may consider LP if mentation does not improve
All questions encouraged and answered, plan of care discussed with Dr. Campbell, Dr. Jaime, Swathi Angeles PROJECT MANAGEMENT ADVISOR and daughter (patient too lethargic)
Consultation
Order
Date of Consultation: 07/09/25
Requesting Provider: hospitalist
Reason for Consult: change in mental status
Subjective/Objective
Subjective Data
Date of Service: July 09, 2025
Patient currently lethargic and unable to provide any meaningful history. All information obtained from chart and staff. Patient is an 80-year-old female with past medical history significant for hypertension, hyperlipidemia, orthostatic hypotension
on fludrocortisone as well as cognitive impairment sent from [facility] on 07/09/2025 for evaluation of change in mental status. Patient with recent traumatic pneumothorax in May 2025 after fall. As per EMS patient was found in the dining room
slumped over. EMS was called. Nurse reports pt was awake in the morning then wheeled to the dining room by staff, then RN reports she fell asleep. Staff noticed at 8:30 am the patient was not responding to any verbal stimuli and then she had a
questionable seizure episode lasting 2 to 3 minutes with whole body twitching and was incontinent of bowel. When she did come to her speech was slightly off. In ED patient continues to be lethargic with eyes mostly closed only following simple
commands. Current VSS BP 121/76 HR 76. Labs thus far unrevealing. Head CT showed no acute intracranial abnormalities with diffuse cortical atrophy. CTA head and neck with no LVO, aneurysm or occlusion. Exam reveals generalized weakness.
Objective Data
Vital Signs
Temp Pulse Resp BP Pulse Ox
97.5 F 78 11 95/49 99
07/09/25 10:37 07/09/25 12:30 07/09/25 12:30 07/09/25 12:30 07/09/25 12:30
Lab Results
07/09/25 11:06
07/09/25 11:06
Sodium 140 mmol/L (135-145) 07/09/25 11:06
Potassium 3.9 mmol/L (3.5-5.1) 07/09/25 11:06
BUN 19 mg/dl (7-17) H 07/09/25 11:06
Glucose 117 mg/dl (70-99) H 07/09/25 11:06
Calcium 9.0 mg/dl (8.4-10.2) 07/09/25 11:06
Patient Allergies
No Known Allergies Allergy (Unverified 07/09/25 11:12)
Physical Exam
-
General: Comfortable and Wearing Oxygen
Eyes: PERRLA
HEENT: Normocephalic, Atraumatic and Anicteric
Neck: Full Range of Motion
Respiratory: No Dyspnea
Cardiac: No JVD
GI: Non-distended
Skin: Unremarkable
Extremities: No Clubbing, No Cyanosis and No Edema
Psych: Apparent Dementia
Extended Neurological Exam
Mood & Affect: Unable to Assess
Attention Span & Concentration: Lethargic and Unable to Perform 2 Step Request
Memory: Unable to Recall
Tremor: Hand Tremor Absent and Head Tremor Absent
Involuntary Movement: None
Speech: Severely Reduced Output
Cranial Nerve II: Left Eye: Visual Vasquez Intact
Cranial Nerve II: Right Eye: Visual Vasquez Intact
Cranial Nerves III, IV, : Extraocular Movement: Extraocular Movement Full in all Directions
Cranial Nerve VII: Facial Symmetry: Normal Facial Symmetry
Cranial Nerve VIII: Hearing: Unremarkable Hearing to Normal Conversational Volume
Muscle Strength, Overall: Reduced Throughout
Coordination: [id number] Testing Unremarkable
Data Reviewed
-
CT-A: Report Reviewed and Image Reviewed
CT-Perfusion: Report Reviewed and Image Reviewed
CT Head: Report Reviewed and Image Reviewed
EEG: Ordered
Orthostatic Testing: Ordered
Labs: Report Reviewed
Lipid Profile: Ordered
HgbA1C: Ordered
Reviewed with: Physician, Nurse and Family
Old Records: Summarized
Medications
-
Home Medications
�Medication �Instructions �Recorded
albuterol sulfate 90 mcg/actuation 2 puff inhalation R Q6HPRN PRN SOB 06/07/25
aerosol inhaler
atenolol 25 mg tablet 25 mg PO BID Blood Pressure 06/07/25
bupropion HCl 150 mg 24 hr tablet, 150 mg PO DAILY Mental 06/07/25
extended release Health/Anxiety
fludrocortisone 0.1 mg tablet 0.1 mg PO DAILY Autoimmune Disorder 06/07/25
rosuvastatin 10 mg tablet (Crestor) 10 mg PO DAILY High Cholesterol 06/07/25
cholecalciferol (vitamin D3) 50 50 mcg PO DAILY 07/09/25
mcg (2,000 unit) capsule
Past History
Past History
ED Past Medical History: Psychiatric
Family/Social History
Tobacco: Non-smoker
Alcohol: None
Drug: None
Living: [facility]
Employment: Not employed
Family History: Unable to obtain (Dementia)
[2025-07-09 14:52] LABS: HDL Cholesterol 61 mg/dl; LDL Cholesterol, Calculated 77 mg/dl; Very Low Density Lipoprotein 28 mg/dl (0-30)
--- NOTE | 2025-07-09 14:54 | HPS.HSE ---
Addendum entered and electronically signed by Marck Mccormick MD 07/09/25 15:55:
see update note for addendum
Original Note:
Family Physician
-
Family Physician: TRINITY Preciado
Chief Complaint
-
metabolic encephalopathy
History of Present Illness
80-year-old female with PMH for HTN, HLD, anxiety, mild cognitive impairment presented to us from [facility] s/p she was found in the dining room slumped over. history obtained from the daughter. patient is sleepy not able to provide meaningful
story.daughter saw mom normal on last Tuesday. as per daughter, she has hypotension and she always feel dizzy.
concern for seizure. At present obtaining EEG in the room. Patient received normal saline, thiamine in the ER. Admitted for further management
Medical History
Past Medical History
Past Medical History: Reports Other
Additional Past Medical History:
Hypertension, anxiety, autoimmune disorder, mild cognitive impairment
Past Surgical History: Reports Other
Additional Past Surgical History:
Cataract surgery
Social History
Tobacco: Non-smoker
Alcohol: Former
Drug: None
Living: [facility]
Family History
Family History: Not pertinent
Allergies / Home Medications
Allergies reflects when Allergies were last updated in [facility].
Home Medications with original date entered in [facility]
Allergy/Medication List:
Allergies
Allergy/AdvReac Type Severity Reaction Status Date / Time
No Known Allergies Allergy Unverified 07/09/25 11:12
Home Medications
albuterol sulfate 90 mcg/actuation aerosol inhaler 2 puff inhalation R Q6HPRN PRN SOB 06/07/25
atenolol 25 mg tablet 25 mg PO BID Blood Pressure 06/07/25
bupropion HCl 150 mg 24 hr tablet, extended release 150 mg PO DAILY Mental Health/Anxiety 06/07/25
fludrocortisone 0.1 mg tablet 0.1 mg PO DAILY Autoimmune Disorder 06/07/25
rosuvastatin 10 mg tablet (Crestor) 10 mg PO DAILY High Cholesterol 06/07/25
cholecalciferol (vitamin D3) 50 mcg (2,000 unit) capsule 50 mcg PO DAILY Supplement 07/09/25
Review of Systems
-
Unable to obtain full review of systems at this time due to: Acuity
Physical Exam
Vital Signs
Vital Signs
Temp Pulse Resp BP Pulse Ox
97.5 F 78 11 95/49 99
07/09/25 10:37 07/09/25 12:30 07/09/25 12:30 07/09/25 12:30 07/09/25 12:30
Physical Exam
General: Well Developed, Well Nourished and No Apparent Distress
HEENT: NormoCephalic, Moist mucous membranes and Atraumatic
Respiratory: Clear
Cardiac: S1/S2 and Regular Rhythm; No Murmur or Rub
GI: Soft, Non Tender, Non Distended and Normal Bowel Sounds; No Organomegaly
Rectal: Deferred by Provider
Musculoskeletal: No Clubbing, No Cyanosis and No Edema
Skin: No Rash
Neuro: Nonfocal/grossly intact
Laboratory Results
-
07/09/25 11:06
07/09/25 11:06
Laboratory Results
Total Bilirubin 0.5 mg/dl (0.2-1.3) 07/09/25 11:06
AST 19 U/L (14-36) 07/09/25 11:06
ALT 14 U/L (0-35) 07/09/25 11:06
Alkaline Phosphatase 77 U/L (38-126) 07/09/25 11:06
Data Reviewed
-
Diagnostic Radiology: Report Reviewed by me
CT Scan: Report Reviewed by me
Lab Data: Labs Reviewed by me
Impression/Plan
-
# Metabolic encephalopathy concern for seizure vs hypotension
- EEG
- Head neck CTA and CT brain perfusion with impression Moderate atherosclerosis of the carotid arterial system bilaterally with likely nonhemodynamically significant stenosis of the proximal internal carotid arteries bilaterally, as noted
above.Dominant left vertebral artery.No findings to suggest internal carotid artery or vertebral artery dissection bilaterally.No significant proximal intracranial arterial stenosis bilaterally.
- Head CT with no acute findings
- Obtain MRI of the brain
- PT/OT consult
- Seizure precaution
-Thiamine injection continued
- Neurology consulted
# Hypertension
- Hold atenolol as patient is hypotensive in the ER.
# Anxiety
- hold Wellbutrin until fully awake
#dizzy/orthostatic hypotension
- Fludrocortisone held until she is fully awake
# DVT prophylaxis
- Lovenox
# CODE STATUS
- Patient is DNR
hold oral meds until patient is fully awake
--- NOTE | 2025-07-09 15:30 | EDRN ---
Just completed EEG at this time.
[2025-07-09 15:37] LABS: TSH 3.25 uIU/ml (0.47-4.68)
--- NOTE | 2025-07-09 15:55 | W.PN.UPDATE ---
Update Note
Progress Note Update
I saw and examined the patient.
The PETROLEUM ANALYST Rivera's note was reviewed and I agree with the note.
Comment: 80 y/o F, Hx of HTN, HLD, anxiety, mild forgetfulness/cognitive impairment per daughter presents from local assisted found slumped over in dining room. Per reports she was her usual self when last seen by family Tuesday and continued
that way into this morning. At some point during AM breakfast, she passed out with 'shaking activity' and was not arousable afterwards. She was brought to ER; where she is sleepy but arousable. Neuro imaging negative and labs unremarkable
Neuro evaluated and recommended EEG which is completed but not interpreted yet. Also MRI brain.
Exam:
General: Well Developed, Well Nourished and No Apparent Distress
HEENT: Normocephalic, Moist mucous membranes and Atraumatic
Respiratory: Clear
Cardiac: S1/S2 and Regular Rhythm; No Murmur or Rub
GI: Soft, Non Tender, Non Distended and Normal Bowel Sounds; No Organomegaly
Rectal: Deferred by Provider
Musculoskeletal: No Clubbing, No Cyanosis and No Edema
Skin: No Rash
Neuro: Nonfocal/grossly intact. Lethargy/sleepy, arousable to name.
Assessment: Lethargy, unclear if TME vs seizure with post-ictal state vs CVA vs inadvertent medication mix up (with another patients pills) vs other. EEG interpretation pending. check MRI brain. Neuro evaluation. No sign of infectious etiology
noted. Patient not on any sedating meds per records.
PT/OT/ST evals. IVF while off daily fludrocortisone - too lethargic for PO meds at present.
[2025-07-09 15:56] LABS: Vitamin B12 374 pg/ml (239-931)
--- NOTE | 2025-07-09 16:54 | EEG.RPT ---
Electroencephalogram Report
Recording
Date of EE07/09/25
Type of EEG: Routine
Length of EEG recordin minutes
Done with Video Recording: Yes
Patient Status: Emergency Room
Recording Conditions: Awake and Drowsy
Hyperventilation Performed: No
Photic Stimulation Performed: Yes
Report
LESS THAN 1 HOUR EEG REPORT
LESS THAN 1 HOUR EEG INTERPRETATION:
Mildly to moderately abnormal study for age based on generalized slowing demonstrated bihemispherically equally, even for age.
CLINICAL CORRELATION:
Although normative values not been established for a person of this advanced age the patient�s symmetry of the background suggests that this study was suggestive of mild to moderate bihemispheric cortical dysfunction. No epileptiform features were
demonstrated.
If concerns remain regarding epilepsy, prolonged monitoring may be of assistance.
Clinical correlation is advised.
METHODS:
A 21-channel digital electroencephalogram (EEG) was performed at the bedside in the ICU. The 10/20 international system of electrode placement was used with ECG and lateral/vertical eye movements recorded. The [employer] quantitative EEG analysis
system was performed
IMPRESSION(S):
Quality of study
Fair
Background
Low amplitude
Anterior-posterior voltage gradient differentiation: Fair
Theta frequency maximal background demonstrated
Sleep
Drowsiness present
Hyperventilation
Not performed
Photic Stimulation
Failed to activate the record
ECG
Normal rhythm
Abnormal Activity
None
[2025-07-09] MEDS: THIAMINE INJECTION 100 MG IV (17:02)
--- NOTE | 2025-07-09 18:25 | EDRN ---
Was able to awaken pt w/ much stimulus but pt unable to stay awake and unable to perform NIHSS check at this time.
--- NOTE | 2025-07-09 18:43 | EDRN ---
Discussed NIHSS and swallow test results w/ RN who will give report to the next shift on 2 N for TEL bed 2123.
[2025-07-09] MEDS: LOVENOX 40 MG SC (20:40)
[2025-07-10] VITALS (8 sets, daily range): BP systolic 128–160; BP diastolic 57–92; PULSE 84–94; O2SAT 98
[2025-07-10] MEDS: NSS 1000 IV ×2 (05:53→15:09)
[2025-07-10 06:58] LABS: Hematocrit 33.6 % (37.0-47.0); Hemoglobin 10.9 g/dL (12.0-16.0); Mean Corp Hgb Conc. 32.4 g/dL (33.0-37.0); Mean Corpuscular Volume 92.8 fL (81.0-99.0); Platelet Count 176 10^3/uL (130-400); Red Cell Dist. Width 15.2 % (11.5-14.5)
[2025-07-10 07:19] LABS: Blood Urea Nitrogen 16 mg/dl (7-17); Calcium 8.4 mg/dl (8.4-10.2); Carbon Dioxide 25 mmol/L (22-30); Chloride 112 mmol/L (98-107); Glucose 92 mg/dl (70-99); Potassium 3.9 mmol/L (3.5-5.1); eGFR > 60.00
[2025-07-10 07:29] LABS: Sodium 141 mmol/L (135-145)
--- NOTE | 2025-07-10 08:27 | W.PN.HOSP.TC ---
Today's Communication/Plan
-
Continue IV fluids
Continue monitoring for any worsening signs of fatigue/altered mental status
PT OT Speech eval
Assessment / Plan
Assessment / Plan
Assessment:
80-year-old female with a past medical history of hypertension, hyperlipidemia, anxiety, mild cognitive impairment as per her daughter came [facility] the local [facility] due to recent altered mental status that began around Tuesday. She was brought to
the ER due to increased shakiness and being unarousable. In the ED patient underwent imaging and labs which were unremarkable. She was found thought to be going through possible seizure versus stroke evaluation but later on patient reveals that
she might have taken an medications not meant to her at her [facility]. Underwent brain MRI, awaiting official read. Feeling a lot better now, just a little bit more tired than usual.
Plan:
# Altered mental status following ingestion of medication
- EEG not positive for any seizure activity
- Head neck CTA and CT brain perfusion with impression Moderate atherosclerosis of the carotid arterial system bilaterally with likely nonhemodynamically significant stenosis of the proximal internal carotid arteries bilaterally, as noted
above.Dominant left vertebral artery.No findings to suggest internal carotid artery or vertebral artery dissection bilaterally.No significant proximal intracranial arterial stenosis bilaterally.
- Head CT with no acute findings
- Awaiting official read of MRI of the brain
- Urine tested positive for benzodiazepines, possibly ingested medications at [facility] inadvertently
- PT/OT/Speech consult
- Seizure precaution
- Thiamine injection continued
- Neurology consulted, input appreciated
- Continue IV fluids as patient continues to feel fatigued
# Hypertension
- Will resume atenolol
# Anxiety
- Resume Wellbutrin
#dizzy/orthostatic hypotension
- Continue fludrocortisone as fully awake now
# Hyperlipidemia
- Resume rosuvastatin
DVT prophylaxis: Lovenox
CODE STATUS: DNR
Anticipated Discharge: Within 24 hours
Subjective/Interval History
-
Date of Service: July 10, 2025
Patient seen this morning, was very conversant and was able to tell me that she had accidentally taken medications at the [facility] that were not meant for her. She continues to feel a bit lethargic however feeling a lot better than yesterday.
Says that she does not remember what happened in the hospital when she came in or any of the tests that were done following her admission. Finally feels a bit more awake now. Does not have any acute complaints other than feeling fatigued.
Objective Data
-
Labs:
Laboratory Results
07/10/25
06:18
WBC 5.9
Hgb 10.9 L
Hct 33.6 L
Plt Count 176 D
Sodium 141
Potassium 3.9
Chloride 112 H
Carbon Dioxide 25
BUN 16
Creatinine 0.7
Glucose 92
Calcium 8.4
Vital Signs:
Vital Signs
Temp Pulse Resp BP Pulse Ox
97.5 F 92 16 132/57 95
07/10/25 07:10 07/10/25 07:10 07/10/25 07:10 07/10/25 07:10 07/10/25 07:10
I&O
07/09/25 07/10/25 07/11/25
06:59 06:59 06:59
Intake Total 1000 / 1000
Output Total 70 / 70
Balance 930 / 930
Review of Systems
-
History Source: Patient
Constitutional: Reports Fatigue
EENT: Reports No Symptoms Reported
Respiratory: Reports No Symptoms
Cardiac: Reports No Symptoms
Abdomen/GI: Reports No Symptoms
Breast: Reports No Symptoms
Genitourinary: Reports No Symptoms
Musculoskeletal: Reports No Symptoms
Skin: Reports No Symptoms
Neuro: Reports No Symptoms
Endocrine: Reports No Symptoms
Hematologic / Lymphatic: Reports No Symptoms
Allergy / Immunology: Reports No Symptoms
Physical Exam
-
General: No Apparent Distress, Comfortable, Conversant and Appears Chronically Ill
HEENT: Normocephalic and Atraumatic
Respiratory: Clear to Auscultation and Non Labored Respirations
Cardiac: Regular Rhythm and S1/S2
GI: Soft, Nontender, Nondistended and Normal Bowel Sounds
Genito-urinary: No Costovertebral Tender
Musculoskeletal: No Clubbing, No Cyanosis and No Edema
Skin: Warm and Dry
Neuro: Awake, Alert, Oriented and AO x 3
Psych: Calm
Data Reviewed
-
CT Scan: Report Reviewed by me, Discussed with Physician, Discussed with Nurse and Discussed with Patient
Labs: Labs Reviewed by me, Discussed with Physician, Discussed with Nurse and Discussed with Patient
[2025-07-10] MEDS: THIAMINE INJECTION 100 MG IV (09:22)
--- NOTE | 2025-07-10 11:30 | PTOTSP ---
Speech Language Pathology
Pt seen for cognitive-linguistic evaluation. Pt with noted R facial droop and lingual deviation to the R. Cognition evaluated via the [facility] Mental Status ([facility]) Examination. Pt with a score of 4/30 where normal range is 27-30.
Pt with severe cognitive deficits. Pt and family at bedside reported that cognition is at baseline.
Pt also seen for clinical bedside swallow evaluation. P.O. trials of puree, regular solids, and thin liquids provided. Adequate mastication, bolus formation, and A-P transit noted with no oral residue. No overt signs of aspiration.
Recommend:
(1) Regular solids/thin liquids
(2) General aspiration precautions
(3) Meds as tolerated
(4) COMMISSION AUDITOR to follow to ensure diet tolerance. Speech/language therapeutic reassessment can be completed as indicated pending MRI results.
[2025-07-10] MEDS: TENORMIN 25 MG PO ×2 (13:35→20:00)
[2025-07-10] MEDS: FLORINEF 0.1 MG PO (13:35)
[2025-07-10] MEDS: WELLBUTRIN XL (24 hour extended release) 150 MG PO (13:35)
--- NOTE | 2025-07-10 14:22 | CM ---
CM following re: discharge planning.
Reviewed pt's chart, met with pt. Pt's son and daughter in law at bedside.
Pt is an 80 year old female, admitted with primary dx of Seizure. Brain MRI today.
Pt reports she just moved to [facility] 6 weeks ago, prior lived with daughter in a 2[facility]. Pt reports she has 2 supportive children. Pt reports she has a walker, does not use it, has been falling a lot. Pt's son stated he is requested an
investigation at [facility] regarding medication management.
PT and OT will evaluate the pt to determine a level of care at discharge.
PCP: Ilan Luong
Pharmacy: [facility]
D/C plan: uncertain at this time and will depend on PT/OT recommendations.
CM will follow with discharge plan updates as hospitalization progresses
[2025-07-10] MEDS: LOVENOX 40 MG SC (17:10)
[2025-07-10] MEDS: CRESTOR 10 MG PO (17:10)
[2025-07-10] MEDS: TYLENOL 650 MG PO (21:06)
[2025-07-11] VITALS (7 sets, daily range): BP systolic 123–162; BP diastolic 56–83; PULSE 83; O2SAT 96–97
[2025-07-11] MEDS: NSS IV (03:00)
--- NOTE | 2025-07-11 08:14 | W.PN.HOSP.TC ---
Today's Communication/Plan
-
Determine SNF placement and discharge to SNF possibly today
Continue monitoring for any worsening mental status
Assessment / Plan
Assessment / Plan
Assessment:
80-year-old female with a past medical history of hypertension, hyperlipidemia, anxiety, mild cognitive impairment as per her daughter came [facility] the local [facility] due to recent altered mental status that began around Tuesday. She was brought to
the ER due to increased shakiness and being unarousable. In the ED patient underwent imaging and labs which were unremarkable. She was found thought to be going through possible seizure versus stroke evaluation but later on patient reveals that
she might have taken an medications not meant to her at her [facility]. Planning resuscitation with IV fluids and just overall monitoring, patient continued to get better and returned back to her baseline. He was assessed by PT who recommended
SNF placement for skilled rehabilitation. Discussed with patient if she would want to go to a SNF and she was amenable.
Plan:
# Altered mental status following ingestion of medication
- Resolved
- EEG not positive for any seizure activity
- Head neck CTA and CT brain perfusion with impression Moderate atherosclerosis of the carotid arterial system bilaterally with likely nonhemodynamically significant stenosis of the proximal internal carotid arteries bilaterally, as noted
above.Dominant left vertebral artery.No findings to suggest internal carotid artery or vertebral artery dissection bilaterally.No significant proximal intracranial arterial stenosis bilaterally.
- Head CT with no acute findings
- MRI brain did not show any acute findings
- Urine tested positive for benzodiazepines, possibly ingested medications at [facility] inadvertently
- PT/OT/Speech consult-recommended SNF rehab
- Seizure precaution
- Thiamine injection continued
- Neurology consulted, input appreciated
- IV fluids discontinued, patient has been eating and drinking well by herself
# Hypertension
- Will resume atenolol
# Anxiety
- Resume Wellbutrin
#dizzy/orthostatic hypotension
- Continue fludrocortisone as fully awake now
# Hyperlipidemia
- Resume rosuvastatin
DVT prophylaxis: Lovenox
CODE STATUS: DNR
Anticipated Discharge: Today
Subjective/Interval History
-
Date of Service: July 11, 2025
Patient resting comfortably in bed when seen this morning. Reports no acute complaints at this time. Discussed with her regarding possible rehabilitation at SNF before going home, was amenable after discussion. Discussed with her her normal MRI
results and that she would be able to go home soon.
Objective Data
-
Labs:
Laboratory Results
07/11/25
06:00
WBC Pending
Hgb Pending
Hct Pending
Plt Count Pending
Sodium Pending
Potassium Pending
Chloride Pending
Carbon Dioxide Pending
BUN Pending
Creatinine Pending
Glucose Pending
Calcium Pending
Vital Signs:
Vital Signs
Temp Pulse Resp BP Pulse Ox
97.6 F 72 20 132/56 97
07/11/25 07:09 07/11/25 07:09 07/11/25 07:09 07/11/25 07:09 07/11/25 07:09
I&O
07/10/25 07/11/25 07/12/25
06:59 06:59 06:59
Intake Total 1000 / 1000 2120 / 2120 600 / 600
Output Total 70 / 70 1750 / 1750
Balance 930 / 930 370 / 370 600 / 600
Review of Systems
-
History Source: Patient
Constitutional: Reports No Symptoms
EENT: Reports No Symptoms Reported
Respiratory: Reports No Symptoms
Cardiac: Reports No Symptoms
Abdomen/GI: Reports No Symptoms
Breast: Reports No Symptoms
Genitourinary: Reports No Symptoms
Musculoskeletal: Reports No Symptoms
Skin: Reports No Symptoms
Neuro: Reports No Symptoms
Endocrine: Reports No Symptoms
Hematologic / Lymphatic: Reports No Symptoms
Allergy / Immunology: Reports No Symptoms
Physical Exam
-
General: Well Developed, No Apparent Distress, Comfortable and Conversant
HEENT: Normocephalic, Atraumatic and Moist Mucous Membranes
Respiratory: Clear to Auscultation and Non Labored Respirations; Negative Wheezes, Rhonchi or Crackles
Cardiac: Regular Rhythm and S1/S2
GI: Soft, Nontender, Nondistended and Normal Bowel Sounds
Genito-urinary: No Costovertebral Tender
Musculoskeletal: No Clubbing, No Cyanosis and No Edema
Skin: Warm and Dry
Neuro: Awake, Alert, Oriented, AO x 3, No Motor Deficits and No Sensory Deficits
Psych: Calm
Data Reviewed
-
MRI: Report Reviewed by me, Discussed with Physician and Discussed with Patient
Labs: Labs Reviewed by me, Discussed with Physician and Discussed with Patient
[2025-07-11] MEDS: THIAMINE INJECTION 100 MG IV (08:30)
[2025-07-11] MEDS: WELLBUTRIN XL (24 hour extended release) 150 MG PO (08:30)
[2025-07-11] MEDS: FLORINEF 0.1 MG PO (08:30)
[2025-07-11] MEDS: TENORMIN 25 MG PO ×2 (08:30→19:36)
[2025-07-11 08:55] LABS: Hematocrit 37.1 % (37.0-47.0); Hemoglobin 11.8 g/dL (12.0-16.0); Mean Corp Hgb Conc. 31.8 g/dL (33.0-37.0); Mean Corpuscular Volume 93.5 fL (81.0-99.0); Platelet Count 184 10^3/uL (130-400); Red Cell Dist. Width 14.9 % (11.5-14.5)
[2025-07-11 09:41] LABS: Blood Urea Nitrogen 8 mg/dl (7-17); Calcium 8.7 mg/dl (8.4-10.2); Carbon Dioxide 28 mmol/L (22-30); Chloride 109 mmol/L (98-107); Glucose 82 mg/dl (70-99); Potassium 3.5 mmol/L (3.5-5.1); Sodium 143 mmol/L (135-145); eGFR > 60.00
[2025-07-11] MEDS: KCL ELIXIR 40 MEQ PO (11:20)
--- NOTE | 2025-07-11 11:50 | CM ---
Addendum entered by Guy Sandy 07/11/25 16:19:
IMM reviewed, placed on chart, pt has a copy.
Addendum entered by Gyu Sandy 07/11/25 13:50:
[facility] offered a bed.
Both pt and her son Josesito are aware, expressed their agreement.
CM spoke to [facility] SNF financial coordinator and she correected that they do have a bed available tomorrow, not today.
'
CM initiated an auth from [facility] serving [facility], spoke to labor union business representative Adriana, pending auth #: [id number]. Requested pt's clinical faxed to [facility] [phone].
Awaiting for an auth.
D/C plan: [facility] tomorrow 07/12/25. Awaiting for an auth.
CM will follow to assist pt with discharge to [facility].
Original Note:
CM following re: discharge planning.
Reviewed pt's chart, met with pt. Pt's son Josesito at bedside.
Pt reports she just moved to [facility] 6 weeks ago, prior lived with daughter in a 2SH. Pt reports she has 2 supportive children. Pt reports she has a walker, does not use it, has been falling a lot.
PT and OT evaluations noted - SNF level of care recommended. Both pt and her son are aware, expressed their agreement. A list of SNFs provided. [facility] and [facility] SNF requested. A referral to above SNFs made.
Awaiting for determination.
D/C plan: preferred SNF: [facility] or [facility] SNF.
CM will follow to assist pt with discharge to a preferred SNF.
[2025-07-11] MEDS: LOVENOX 40 MG SC (17:11)
[2025-07-11] MEDS: CRESTOR 10 MG PO (17:11)
[2025-07-12 07:10] VITALS: BP 141/68
[2025-07-12 07:20] LABS: Hematocrit 33.8 % (37.0-47.0); Hemoglobin 11.2 g/dL (12.0-16.0); Mean Corp Hgb Conc. 33.1 g/dL (33.0-37.0); Mean Corpuscular Volume 92.1 fL (81.0-99.0); Platelet Count 178 10^3/uL (130-400); Red Cell Dist. Width 14.7 % (11.5-14.5)
[2025-07-12 07:39] LABS: Blood Urea Nitrogen 11 mg/dl (7-17); Calcium 8.7 mg/dl (8.4-10.2); Carbon Dioxide 28 mmol/L (22-30); Chloride 108 mmol/L (98-107); Glucose 91 mg/dl (70-99); Potassium 4.1 mmol/L (3.5-5.1); Sodium 140 mmol/L (135-145); eGFR > 60.00
--- NOTE | 2025-07-12 08:18 | W.PN.HOSP.TC ---
Today's Communication/Plan
-
Discharge to SNF today
Assessment / Plan
Assessment / Plan
Assessment:
80-year-old female with a past medical history of hypertension, hyperlipidemia, anxiety, mild cognitive impairment as per her daughter came from the local longterm due to recent altered mental status that began around Tuesday. She was brought to
the ER due to increased shakiness and being unarousable. In the ED patient underwent imaging and labs which were unremarkable. She was found thought to be going through possible seizure versus stroke evaluation but later on patient reveals that
she might have taken an medications not meant to her at her longterm. Planning resuscitation with IV fluids and just overall monitoring, patient continued to get better and returned back to her baseline. He was assessed by PT who recommended
SNF placement for skilled rehabilitation. Discussed with patient if she would want to go to a SNF and she was amenable. Patient awaiting authorization for SNF today, will be discharged once bed is available.
Plan:
# Altered mental status following ingestion of medication
- Resolved
- EEG not positive for any seizure activity
- Head neck CTA and CT brain perfusion with impression Moderate atherosclerosis of the carotid arterial system bilaterally with likely nonhemodynamically significant stenosis of the proximal internal carotid arteries bilaterally, as noted
above.Dominant left vertebral artery.No findings to suggest internal carotid artery or vertebral artery dissection bilaterally.No significant proximal intracranial arterial stenosis bilaterally.
- Head CT with no acute findings
- MRI brain did not show any acute findings
- Urine tested positive for benzodiazepines, possibly ingested medications at longterm inadvertently
- PT/OT/Speech consult-recommended SNF rehab
- Seizure precautions
- Neurology consulted, input appreciated
- Oral Thiamine continued
- IV fluids discontinued, patient has been eating and drinking well by herself
# Hypertension
- Will resume atenolol
# Anxiety
- Resume Wellbutrin
#dizzy/orthostatic hypotension
- Continue fludrocortisone as fully awake now
# Hyperlipidemia
- Resume rosuvastatin
DVT prophylaxis: Lovenox
CODE STATUS: DNR
Anticipated Discharge: Today
Subjective/Interval History
-
Date of Service: July 12, 2025
Patient seen this morning, was resting comfortably in her bed. Reports no acute concerns at this time, looking forward to going over to SNF today.
Objective Data
-
Labs:
Laboratory Results
07/12/25
06:43
WBC 6.9
Hgb 11.2 L
Hct 33.8 L
Plt Count 178
Sodium 140
Potassium 4.1
Chloride 108 H
Carbon Dioxide 28
BUN 11
Creatinine 0.7
Glucose 91
Calcium 8.7
Vital Signs:
Vital Signs
Temp Pulse Resp BP Pulse Ox
99.2 F 86 18 149/72 97
07/11/25 23:13 07/11/25 23:13 07/11/25 23:13 07/11/25 23:13 07/11/25 23:13
I&O
07/11/25 07/12/25 07/13/25
06:59 06:59 06:59
Intake Total 2119 / 2119
Output Total 1749 / 175
Balance 370 / 370 1859
Review of Systems
-
History Source: Patient
Constitutional: Reports No Symptoms
EENT: Reports No Symptoms Reported
Respiratory: Reports No Symptoms
Cardiac: Reports No Symptoms
Abdomen/GI: Reports No Symptoms
Breast: Reports No Symptoms
Genitourinary: Reports No Symptoms
Musculoskeletal: Reports No Symptoms
Skin: Reports No Symptoms
Neuro: Reports No Symptoms
Endocrine: Reports No Symptoms
Hematologic / Lymphatic: Reports No Symptoms
Allergy / Immunology: Reports No Symptoms
Physical Exam
-
General: Well Developed, No Apparent Distress, Comfortable and Conversant
HEENT: Normocephalic, Atraumatic and Moist Mucous Membranes
Respiratory: Clear to Auscultation and Non Labored Respirations; Negative Wheezes, Rales, Rhonchi or Crackles
Cardiac: Regular Rhythm and S1/S2; Negative Calf Tenderness
GI: Soft, Nontender, Nondistended and Normal Bowel Sounds
Genito-urinary: No Costovertebral Tender
Musculoskeletal: No Clubbing, No Cyanosis and No Edema
Skin: Warm and Dry; Negative Rash
Neuro: Awake, Alert, Oriented, AO x 3, No Motor Deficits and No Sensory Deficits
Psych: Calm
Data Reviewed
-
Labs: Labs Reviewed by me, Discussed with Physician and Discussed with Patient
[2025-07-12] MEDS: WELLBUTRIN XL (24 hour extended release) 150 MG PO (09:25)
[2025-07-12] MEDS: FLORINEF 0.1 MG PO (09:25)
[2025-07-12] MEDS: VITAMIN B1 100 MG PO (09:25)
[2025-07-12] MEDS: TENORMIN 25 MG PO (09:25)
--- NOTE | 2025-07-12 11:25 | CM ---
Addendum entered by Guy Sandy 07/12/25 15:43:
supervisor ordnance truck installation time 4:30 p.m.
Original Note:
CM following re: discharge planning.
Reviewed pt's chart, met with pt and spoke to pt's son and daughter.
CM received confirmation from [facility] route service representative macario, pt is approved for 5 initial days fir SNF level of care at [facility] from today 07/12/25 till 07/16/25 with NRD and LCD 07/16/25. per macario, no authorization
generated yet, reference number [id number] and [facility] will get an auth number. Reviewer: Haily Luciano
Auth information forwarded to [facility] liaison chetna and she confirmed that pt is accepted for admission today.
to arrange ambulance transport, BLS. PMNC completed and left with .
[facility] nursing report: [phone]
Discharge instructions fax: [phone]
D/c plan: [facility]
--- NOTE | 2025-07-12 11:41 | W.DCSUMMARY ---
Documented by User: Radha Mercedes MD, Resident 07/12/25 12:05
Discharge Summary
Discharge Data
Date of Admission: 07/09/25
Date of Discharge: 07/12/25
-
Pending Results: No
Hospital Course
Discharging Physician : Dr. See Zarate, Dr. Radha Mercedes
Disposition : SNF
Primary care physician : TRINITY Preciado
Principal Discharge diagnosis :
Altered mental status following ingestion of inadvertent benzodiazepines
Chronic Discharge diagnosis :
Anxiety
Hypertension
Orthostatic hypotension
Hyperlipidemia
Hospital Course :
80-year-old female with a past medical history of hypertension, hyperlipidemia, anxiety, mild cognitive impairment as per her daughter came from the local residential due to recent altered mental status that began around Tuesday. She was brought to
the ER due to increased shakiness and being unarousable. In the ED patient underwent imaging and labs which were unremarkable. She was found thought to be going through possible seizure versus stroke evaluation but later on patient reveals that
she might have taken medications not meant to her at her residential. Patient's urine drug screen tested positive for benzodiazepines. Patient was started on resuscitation with IV fluids and just overall monitoring, patient continued to get better
and returned back to her baseline. MRI brain was negative for any acute stroke process. She was assessed by PT who recommended SNF placement for skilled rehabilitation. Discussed with patient if she would want to go to a SNF and she was amenable.
Patient was stable for discharge to SNF today.
Important imaging findings :
MR Brain w/o Contrast:
No acute intracranial abnormality.
CT Brain Perfusion; CT Head & Neck Angio W/wo IV:
Moderate atherosclerosis of the carotid arterial system bilaterally with likely nonhemodynamically significant stenosis of the proximal internal carotid arteries bilaterally, as noted above.
Dominant left vertebral artery.
No findings to suggest internal carotid artery or vertebral artery dissection bilaterally.
No significant proximal intracranial arterial stenosis bilaterally.
Procedure findings : N/A
Discharge Plan
-
Patient Disposition: Half-Way/SNF
Discharge Diagnosis/Procedures: Altered mental status following ingestion of inadvertent benzodiazepines
Anxiety
Hypertension
Orthostatic hypotension
Hyperlipidemia
Condition: Good
Diet: Low Cholesterol
Activity: As tolerated
Driving Restrictions: As prior to admission
Bathing Restrictions: None
Referrals:
Ilan Luong CRNP [Family Provider, General] - in less than 1 week
Referral Note: Please follow up with your PCP within 1 week for further management.
Additional Discharge Medication Instructions: Please continue all your previous home medications.
Please be careful about ingesting medications that are not meant for you in the future.
Prescriptions:
Continued
atenolol 25 mg Tablet
25 mg PO BID
albuterol sulfate 90 mcg/actuation Hfa Aerosol Inhaler
2 puff INHALATION R Q6HPRN PRN (Reason: SOB)
fludrocortisone 0.1 mg Tablet
0.1 mg PO DAILY
rosuvastatin [Crestor] 10 mg Tablet
10 mg PO DAILY
bupropion HCl 150 mg Tablet Extended Release 24 Hr
150 mg PO DAILY
cholecalciferol (vitamin D3) 50 mcg (2,000 unit) Capsule
50 mcg PO DAILY
acetaminophen [Tylenol] 325 mg Tablet
975 mg PO TID
benzonatate 100 mg Capsule
100 mg PO Q8HPRN PRN (Reason: cough)
Discharge Orders:
Discharge Patient (As Directed); Ordered 07/12/25
Ordered By: Radha Mercedes
Discharge Date and Time
Discharge Date/Time: 07/12/25 16:06
Print Language: INDIAN

Documented by User: See Zarate DO 07/13/25 10:14
Discharge Summary
Discharge Data
Date of Admission: 07/09/25
Date of Discharge: 07/12/25
Total time spent discharging patient (in min): 31
Discharge Plan
-
Patient Disposition: Half-Way/SNF
Discharge Diagnosis/Procedures: Altered mental status following ingestion of inadvertent benzodiazepines
Anxiety
Hypertension
Orthostatic hypotension
Hyperlipidemia
Condition: Good
Diet: Low Cholesterol
Activity: As tolerated
Driving Restrictions: As prior to admission
Bathing Restrictions: None
Referrals:
Ilan Luong CRNP [Family Provider, General] - in less than 1 week
Referral Note: Please follow up with your PCP within 1 week for further management.
Additional Discharge Medication Instructions: Please continue all your previous home medications.
Please be careful about ingesting medications that are not meant for you in the future.
Prescriptions:
Continued
atenolol 25 mg Tablet
25 mg PO BID
albuterol sulfate 90 mcg/actuation Hfa Aerosol Inhaler
2 puff INHALATION R Q6HPRN PRN (Reason: SOB)
fludrocortisone 0.1 mg Tablet
0.1 mg PO DAILY
rosuvastatin [Crestor] 10 mg Tablet
10 mg PO DAILY
bupropion HCl 150 mg Tablet Extended Release 24 Hr
150 mg PO DAILY
cholecalciferol (vitamin D3) 50 mcg (2,000 unit) Capsule
50 mcg PO DAILY
acetaminophen [Tylenol] 325 mg Tablet
975 mg PO TID
benzonatate 100 mg Capsule
100 mg PO Q8HPRN PRN (Reason: cough)
Discharge Orders:
Discharge Patient (As Directed); Ordered 07/12/25
Ordered By: Radha Mercedes
Discharge Date and Time
Discharge Date/Time: 07/12/25 16:06
Print Language: INDIAN
[2025-07-12 15:08] VITALS: BP 134/69
== END 2025-07-12 16:06 | DRG 917 ==
LOC: 2 NORTH 15:40
PROVIDERS: Nurse Practitioner; Registered Nurse; ADMITTING PHYSICIAN Internal Medicine; ATTENDING PHYSICIAN Internal Medicine; CONSULT PHYSICIAN Psychiatry & Neurology Neurology; EMERGENCY PHYSICIAN Student in an Organized Health Care Education/Training Program; FAMILY PHYSICIAN Nurse Practitioner Family
DX: T42.4X1A Poisoning by benzodiazepines, accidental (unintentional), initial encounter (principal); G92.8 Other toxic encephalopathy; F03.94 Unspecified dementia, unspecified severity, with anxiety; I10 Essential (primary) hypertension; I65.23 Occlusion and stenosis of bilateral carotid arteries; E78.5 Hyperlipidemia, unspecified; I95.1 Orthostatic hypotension; Z66 Do not resuscitate; Y92.129 Unspecified place in nursing home as the place of occurrence of the external cause; Z79.899 Other long term (current) drug therapy; Z11.52 Encounter for screening for COVID-19
CPT/HCPCS: 0042T; 51701; 70450; 70496; 70498; 70551; 71045; 80048; 80053; 80061; 80306; 80307; 81003; 81015; 82607; 82962; 84439; 84443; 85025; 85027; 87070; 87502; 87811; 92523; 92610; 93005; 95816; 96361; 96374; 97116; 97163; 97167; 97530; 97535; 99285; Q9967